=== PATIENT | female | born 2000 | race Two or more races ===

== ENCOUNTER 2022-06-10 18:31 | Emergency (ER) | payer OTHER, SELFPAY ==
[2022-06-10 18:48] VITALS: BP 125/73; PULSE 94; RESP 18; TEMP 36.9; O2SAT 98; BMI 22.7
--- NOTE | 2022-06-10 19:14 | ED_ITS ---
HPI - General Adult General Time Seen by Provider: 19:14 Date Seen: 06/10/22 Chief complaint: GI Bleed Stated complaint: Black Bloody stool post GI surgery Time Seen by Provider: 06/10/22 18:33 Source: patient Mode of arrival: ambulatory Limitations: no limitations History of Present Illness HPI narrative: Patient is a very pleasant 21-year-old female who is from [place] originally, attending school here in [place]. She has had a gastric sleeve placed 9 months ago successfully and she has lost about 100 lb. She feels very happy about this. She has had some intermittent back pain. And for the last couple of months she has been taking a medication called in from her doctor in [place] called E total lack, which the trade name here is Lodine. The patient reports over last month or so she has no some darkish black stool and she has had some intermittent epigastric pain. The patient has had no fevers chills, bowel or bladder incontinence. Her weight loss has been intentional. No chest pain or breathing problem. The patient was thinking maybe she felt a little lightheaded today but that seemed to get better Related Data Home Medications Medication Instructions Recorded Confirmed lamotrigine 25 mg tablet 25 mg PO 04/21/22 04/21/22 medroxyprogesterone 5 mg tablet 5 mg PO 04/21/22 04/21/22 methylphenidate HCl 10 mg tablet 10 mg PO QDAY 04/21/22 04/21/22 (Ritalin) methylphenidate HCl 36 mg 36 mg PO QDAY 04/21/22 04/21/22 tablet,extended release 24 hr (Concerta) pantoprazole 40 mg tablet,delayed mg PO 04/21/22 04/21/22 release Allergies Allergy/AdvReac Type Severity Reaction Status Date / Time sertraline Allergy Verified 06/10/22 18:47 Review of Systems Status of ROS: Reports: 6 or more systems reviewed and unremarkable except as noted in History and below [facility] Medical History Folliculitis Visit for suture removal Social History Smoking Status: Current every day smoker What tobacco products do you use: cigarettes Smoking packs per day: 0.25 Smoking cigarettes per day: 5.0 Do you use any of these nicotine containing products: Vaping Products Second hand tobacco smoke exposure: Yes How often do you have a drink containing alcohol: 2-4 times a month How many standard drinks containing alcohol do you have on a typical day: 1 or 2 How often do you have six or more drinks on one occasion: Never AUDIT-C Alcohol total score: 2 Non-prescribed substance use: denies use service: No Exam Narrative: Exam Narrative: Objective vital signs unremarkable in general patient is no apparent distress alert orient x3, conjunctiva do not appear pale Neck is supple Mild epigastric tenderness but no rebound or peritonitis no palpable masses in her abdomen Nurse present for evaluation patient has got a couple of skin tags around her anal area but no external hemorrhoids, no digital exam done Good peripheral perfusion noted Const: Vital Signs, click to edit/add: Vital Signs - 24 hr 06/10/22 18:48 Temperature 98.5 F Pulse Rate [Pulse Oximeter] 94 Respiratory Rate 18 Blood Pressure [Le ft Upper Arm] 125/73 Pulse Oximetry 98 Oxygen Delivery Me thod Room Air Course Vital Signs Vital signs: Initial Vital Signs Temperature 98.5 F 06/10/22 18:48 Temperature Source Temporal Artery Scan 06/10/22 18:48 Pulse Rate 94 06/10/22 18:48 Pulse Rhythm 06/10/22 18:48 Respiratory Rate 18 06/10/22 18:48 Blood Pressure 125/73 06/10/22 18:48 Blood Pressure Mean 90 06/10/22 18:48 Blood Pressure Position Supine 06/10/22 18:48 Pulse Oximetry 98 06/10/22 18:48 Oxygen Delivery Method 06/10/22 18:48 Vital Signs Temperature 98.5 F 06/10/22 18:48 Pulse Rate 94 06/10/22 18:48 Respiratory Rate 18 06/10/22 18:48 Blood Pressure 125/73 06/10/22 18:48 Pulse Oximetry 98 06/10/22 18:48 Oxygen Delivery Method 06/10/22 18:48 Temperature 98.5 F 06/10/22 18:48 Pulse Rate 94 06/10/22 18:48 Respiratory Rate 18 06/10/22 18:48 Blood Pressure 125/73 06/10/22 18:48 Pulse Oximetry 98 06/10/22 18:48 Oxygen Delivery Method 06/10/22 18:48 Medical Decision Making MDM Narrative Medical decision making narrative: Patient is a very pleasant 21 year white female who had a gastric sleeve about 9 months ago she has had successful weight loss. Unfortunately she has been taking an anti-inflammatory intermittently for the last couple of months, now has some blackish stools I suspect she has gastritis or a mild ulcer. Does not have clinically significant bleeding as her vital signs appear unremarkable common will check her hemoglobin at and electrolytes. If these are reassuring I think we can get her on Prilosec 20 mg daily for the next couple of weeks however. Have her stop the anti-inflammatory medication. Only take Tylenol as needed, and follow up with primary care in the next few days for reassessment. If she does not stopper has continued black stools she should get an endoscopy upper and likely lower but would start with upper. This can range her primary care doctor. Will make an appointment with telephone number and recommendations. Lab Data Labs: Lab Results 06/10/22 06/10/22 Range/Units 19:24 19:24 WBC 7.76 (4.50-11.00) K/uL RBC 4.45 (4.00-5.20) m/uL Hgb 13.7 (12.0-16.0) gm/dL Hct 41.5 (33.0-51.0) % MCV 93 (80-100) fL MCH 31 (26-34) pg MCHC 33 (32-36) gm/dL RDW Coeff of Rachel 12.7 (11.5-15.5) % Plt Count 210 (140-440) K/uL Neut % (Auto) 65.6 (42.0-72.0) % Lymph % (Auto) 29.1 (20-44) % Webb % (Auto) 3.9 (0.0-11.0) % Eos % (Auto) 1.2 (0.0-7.0) % Baso % (Auto) 0.1 (0.0-3.0) % Neut # (Auto) 5.09 (1.7-7.0) K/uL Lymph # (Auto) 2.26 (0.90-2.90) K/uL Webb # (Auto) 0.30 (0.00-0.90) K/UL Eos # (Auto) 0.09 (0.00-0.50) K/uL Baso # (Auto) 0.01 (0.00-0.30) K/uL Sodium 139 (135-149) mmol/L Potassium 3.6 (3.6-5.1) mmol/L Chloride 104 (96-114) mmol/L Carbon Dioxide 27 (20-32) mmol/L BUN 10 (5-24) mg/dL Creatinine 0.5 (0.5-1.5) mg/dL Estimated Creat Clear 154.98 Estimated GFR 138 ml/min Glucose 89 (60-115) mg/dL Calcium 9.5 (8.4-10.6) mg/dL Discharge Plan Discharge Clinical Impression: Gastritis, Chronic GI bleeding Patient Disposition: Home, Self-Care Condition: Stable Additional Instructions: Stop the Lodine. Do not use Advil Aleve or aspirin. May use Tylenol as needed for back pain only. Prilosec 20 mg daily for the next 2 weeks, this can be obtained [id number] at a pharmacy. Recheck your hemoglobin level and have a reassessment with primary care doctor in the next 2 days. Call clinic for an appointment at . You should have a repeat hemoglobin and read discussion about stool pattern and color. If you noticed bright red blood or other lightheadedness dizziness she should return promptly to the ED. Activity Level: Light activity Discharge Diet: Regular Prescriptions: No Action lamotrigine 25 mg tablet 25 mg PO Label Comments: TAKE ONE TABLET BY MOUTH ONE TIME DAILY pantoprazole 40 mg tablet,delayed release (DR/EC) PO Label Comments: Take 1 tab by mouth daily. methylphenidate HCl [Ritalin] 10 mg tablet 10 mg PO QDAY Label Comments: evening methylphenidate HCl [Concerta] 36 mg tablet extended release 24hr 36 mg PO QDAY Label Comments: in the morning medroxyprogesterone 5 mg tablet 5 mg PO Label Comments: TAKE ONE TABLET BY MOUTH TWICE DAILY every month 1 week prior to menses Follow Up/Referrals: Provider,Not a Local [Primary Care Provider] - Stand Alone Forms: [facility] Info Instructions
[2022-06-10] MEDS: OMEPRAZOLE 20 MG CAPSULE DR PO (19:20)
[2022-06-10 19:29] LABS: Basophils Absolute Auto 0.01 K/uL (0.00-0.30); Basophils Percent Auto 0.1 % (0.0-3.0); Eosinophils Absolute Auto 0.09 K/uL (0.00-0.50); Eosinophils Percent Auto 1.2 % (0.0-7.0); Hematocrit 41.5 % (33.0-51.0); Hemoglobin* 13.7 gm/dL (12.0-16.0); Immature Granulocytes Abs Auto 0.01 K/uL (0.00-0.30); Immature Granulocytes Pct Auto 0.1 %; Lymphocytes Absolute Auto 2.26 K/uL (0.90-2.90); Lymphocytes Percent Auto 29.1 % (20-44); Mean Corpuscular HGB Conc 33 gm/dL (32-36); Mean Corpuscular Hemoglobin 31 pg (26-34); Mean Corpuscular Volume 93 fL (80-100); Monocytes Percent Auto 3.9 % (0.0-11.0); Neutrophils Absolute Auto 5.09 K/uL (1.7-7.0); Neutrophils Percent Auto 65.6 % (42.0-72.0); Platelet Count* 210 K/uL (140-440); RDW Coefficient of Variation % 12.7 % (11.5-15.5); Red Blood Count 4.45 m/uL (4.00-5.20); White Blood Count* 7.76 K/uL (4.50-11.00)
[2022-06-10 19:51] LABS: Slide Review Reflex No
[2022-06-10 19:53] LABS: Chloride* 104 mmol/L (96-114)
[2022-06-10 19:54] LABS: Potassium* 3.6 mmol/L (3.6-5.1); Sodium* 139 mmol/L (135-149)
[2022-06-10 19:56] LABS: Carbon Dioxide* 27 mmol/L (20-32); Creatinine* 0.5 mg/dL (0.5-1.5); Est. Creatinine Clearance* 154.98; Estimated Glomerular Filt Rate 138 ml/min
[2022-06-10 19:57] LABS: Blood Urea Nitrogen* 10 mg/dL (5-24); Calcium* 9.5 mg/dL (8.4-10.6); Glucose* 89 mg/dL (60-115)
== END 2022-06-10 20:10 | disposition home or self-care (01) ==
PROVIDERS: Emergency Provider Family Medicine
DX: K29.70 Gastritis, unspecified, without bleeding (principal); K92.2 Gastrointestinal hemorrhage, unspecified
CPT/HCPCS: 36415; 80048; 85025; 99283; 99284; A9270

== ENCOUNTER 2022-06-12 14:08 | Emergency (ER) | payer OTHER, SELFPAY ==
[2022-06-12 14:11] VITALS: BP 115/83; PULSE 113; RESP 18; TEMP 36.4; O2SAT 97; BMI 21.5
== END 2022-06-12 14:44 | disposition left against medical advice (07) ==
DX: Z53.21 Procedure and treatment not carried out due to patient leaving prior to being seen by health care provider (principal)

== ENCOUNTER 2022-06-12 14:33 | Outpatient (CLI) | payer OTHER, SELFPAY | END 2022-06-12 14:34 | disposition home or self-care (01) | PROVIDERS: Internal Medicine; Visit Provider Emergency Medicine | DX: K92.1 Melena (principal); K29.70 Gastritis, unspecified, without bleeding; K92.2 Gastrointestinal hemorrhage, unspecified; L73.9 Follicular disorder, unspecified | CPT/HCPCS: 36415; 85018 ==

== ENCOUNTER 2022-08-09 09:20 | Outpatient (RCR) | payer OTHER, SELFPAY | END 2022-09-18 09:34 | disposition home or self-care (01) | PROVIDERS: PCP Internal Medicine; Visit Provider Family Medicine | DX: M54.50 Low back pain, unspecified (principal); M62.81 Muscle weakness (generalized); R29.3 Abnormal posture; Z51.89 Encounter for other specified aftercare | CPT/HCPCS: 97110; 97161 ==

== ENCOUNTER 2022-12-14 21:21 | Emergency (ER) | payer OTHER, SELFPAY ==
[2022-12-14 21:49] VITALS: BP 135/85; PULSE 64; RESP 16; TEMP 36.6; O2SAT 98
--- NOTE | 2022-12-14 21:49 | ED.BACK ---
HPI - Back Pain/Injury General Time Seen by Provider: 21:49 Date Seen: 12/14/22 Chief Complaint: Back Injury/Pain Stated Complaint: Back pain Time Seen by Provider: 12/14/22 21:49 Source: patient, RN notes reviewed and old records reviewed Mode of arrival: ambulatory Limitations: no limitations History of Present Illness HPI Narrative: Patient is a 21-year-old college student in [place] who is 3 weeks status post abdominal plasty and breast surgery after weight loss post sleeve placement who comes to the emergency room with complaints of mid back pain. Patient notes that she had back pain from the bed at [place] last year but this seems much more severe. It started approximately 1 hour ago and has been significant. She notes that usually she tries to sleep with a pillow but last night did not. The pain does not radiate into her legs. She notes that it starts that her spine and wraps around. She is not nauseated nor has she had any vomiting or diarrhea. She has had some mild constipation but was able to have a normal bowel movement earlier today. She notes that she feels best when she is lying flat but slightly elevated. She cannot recall any injury. She is breathing without difficulty. She has been wearing support brought and support for her abdomen. No fevers or chills and she has not noticed any drainage from her surgical wounds. Denies dysuria and any chance of . Related Data Home Medications Medication Instructions Recorded Confirmed methylphenidate HCl 10 mg tablet 10 mg PO QDAY 04/21/22 07/27/22 (Ritalin) methylphenidate HCl 36 mg 36 mg PO QDAY 04/21/22 07/27/22 tablet,extended release 24 hr (Concerta) pantoprazole 40 mg tablet,delayed mg PO 04/21/22 07/27/22 release clonazepam 0.5 mg tablet 0.5 mg PO QHS 06/13/22 07/27/22 Allergies Allergy/AdvReac Type Severity Reaction Status Date / Time sertraline Allergy Verified 07/27/22 10:54 Review of Systems Status of ROS: Reports: 6 or more systems reviewed and unremarkable except as noted in History and below Narrative: Originally from [place]. [place]. Const: Reports: change in weight (Significant weight loss post sleeve placement.); Denies: fever or chills Eyes: Denies: change in vision ENMT: Denies: neck pain, throat swelling or difficulty swallowing Cardio: Denies: chest pain, palpitations, swelling of feet/ankles, lightheadedness or shortness of breath with exertion Resp: Denies: shortness of breath or cough GI: Denies: abdominal pain, nausea, vomiting, diarrhea or difficulty swallowing : Denies: painful urination or urinary frequency Musculo: Reports: back pain (Mid back at approximately T11-T12); Denies: neck pain Integ/Breast: Reports: skin tenderness; Denies: redness, skin swelling or sores Allergy/Immuno: Denies: throat swelling PFSH [facility] Medical History Melena ?K92.1 - Melena (ICD-10) Folliculitis ?L73.9 - Follicular disorder, unspecified (ICD-10) Visit for suture removal ?Z48.02 - Encounter for removal of sutures (ICD-10) Surgical History S/P correction of deviated nasal septum ?Z98.890 - Other specified postprocedural states (ICD-10) H/O removal of cyst (04/2022) ?Z98.890 - Other specified postprocedural states (ICD-10) H/O gastric sleeve (2021) ?Z90.3 - Acquired absence of stomach [part of] (ICD-10) Social History Narrative: from [place]-goes to [facility] Smoking Status: Current every day smoker What tobacco products do you use: cigarettes Smoking packs per day: 0.5 Smoking cigarettes per day: 10.0 Do you use any of these nicotine containing products: Vaping Products Second hand tobacco smoke exposure: Yes How often do you have a drink containing alcohol: 2-4 times a month How many standard drinks containing alcohol do you have on a typical day: 1 or 2 How often do you have six or more drinks on one occasion: Never AUDIT-C Alcohol total score: 2 Non-prescribed substance use: denies use service: No Exam Narrative: Exam Narrative: Patient is seen initially in the hallway. She is a crying. When we do talk she is able to a described discomfort and it does appear to be somewhat improved. Eyes are clear. Face symmetrical. Heart with a regular rate and rhythm. Lungs are clear in all lung gonzalez. Abdomen is soft. Patient has multiple surgical wounds that are healing on her breasts and on her extreme lower abdomen. There are no areas of drainage or significant erythema. Examination of the back shows no of acute tenderness. I do ascertain the area of discomfort is approximately T11-T10 and T12 and seems to be more on the left. No crepitus or unusual findings. Lower extremities moving all extremities. Significant other hears very loving and supportive. Const: Vital Signs, click to edit/add: Vital Signs - 24 hr 12/14/22 21:49 12/14/22 22:22 12/14/22 22:30 Temperature 97.9 F Pulse Rate 63 71 Pulse Rate [Left P ulse Oximeter] 64 Respiratory Rate 16 Blood Pressure [Ri ght Upper Arm] 135/85 Pulse Oximetry 98 98 96 Oxygen Delivery Me thod Room Air 12/14/22 22:33 Temperature Pulse Rate 76 Pulse Rate [Left P ulse Oximeter] Respiratory Rate Blood Pressure [Ri ght Upper Arm] Pulse Oximetry 94 Oxygen Delivery Me thod Documenting provider has reviewed patient's vital signs: yes Course Course ED Course: Patient's pain appears to be out of proportion to her exam. Patient notes the onset of this approximately 1 hour ago. Does not really appear to be spasm like in nature. She has not had fever chills or vomiting. We will place an IV at this time and give her morphine 4 mg and Zofran 4 mg. Will also check labs. Of labs reassuring will obtain x-ray of the thoracic spine. If they are concerning I did discuss with patient possibility of doing CT. Reevaluation(s) Reevaluation #1: Patient noted to be doing much better. She is seen walking. She and significant other are laughing. He is very loving and attentive to her. Vital Signs Vital signs: Initial Vital Signs Temperature 97.9 F 12/14/22 21:49 Temperature Source Temporal Artery Scan 12/14/22 21:49 Pulse Rate 64 12/14/22 21:49 Respiratory Rate 16 12/14/22 21:49 Blood Pressure 135/85 12/14/22 21:49 Blood Pressure Mean 101 12/14/22 21:49 Blood Pressure Position Sitting 12/14/22 21:49 Pulse Oximetry 98 12/14/22 21:49 Oxygen Delivery Method Room Air 12/14/22 21:49 Vital Signs Temperature 97.9 F 12/14/22 21:49 Pulse Rate 64 12/14/22 21:49 Respiratory Rate 16 12/14/22 21:49 Blood Pressure 135/85 12/14/22 21:49 Pulse Oximetry 98 12/14/22 21:49 Oxygen Delivery Method Room Air 12/14/22 21:49 Temperature 97.9 F 12/14/22 21:49 Pulse Rate 76 12/14/22 22:33 Respiratory Rate 16 12/14/22 21:49 Blood Pressure 135/85 12/14/22 21:49 Pulse Oximetry 94 12/14/22 22:33 Oxygen Delivery Method Room Air 12/14/22 21:49 MDM - Back Pain/Injury MDM Narrative Medical decision making narrative: 1. Back pain-patient had the onset of severe back pain a few hours prior to coming into the emergency room. However upon further discussion she actually notes that she has experience this type of back pain before but probably not as severe. She has undergone CTs and injections in the past that have not really helped. She has also done physical therapy that has not helped. Medication tonight did appear to make her feel much better. We are going to try some Flexeril 10 mg p.o. b.i.d. p.r.n.. I did suggest starting off with actually a half a tablet or 5 mg to avoid the hangover affect. Patient is fairly certain that this this is associated with a poor mattress as this happened to her last year and now her roommate is also complaining. She states that she has to be very careful about her positioning on the mattress. At this time there is no evidence to suggest pyelonephritis, urinary tract infection, kidney stone, compression fracture. Labs are reassuring at this time. Although white count is slightly elevated CRP is within normal limits. 2. Disposition-home at this time. Return as needed for worsening symptoms. Again, conversation is noted to have taken place later and patient is assuring me that this is the pain that she has felt frequently over the past year. Medical Records Attestation: I reviewed the patient's medical records. Lab Data Attestation: I reviewed the patient's lab results. Labs: Lab Results 12/14/22 12/14/22 Range/Units 22:14 23:00 WBC 11.89 H (4.50-11.00) K/uL RBC 4.33 (4.00-5.20) m/uL Hgb 12.9 (12.0-16.0) gm/dL Hct 38.8 (33.0-51.0) % MCV 90 (80-100) fL MCH 30 (26-34) pg MCHC 33 (32-36) gm/dL RDW Coeff of Rachel 13.1 (11.5-15.5) % Plt Count 220 (140-440) K/uL Neut % (Auto) 67.7 (42.0-72.0) % Lymph % (Auto) 23.5 (20-44) % Milam % (Auto) 6.6 (0.0-11.0) % Eos % (Auto) 1.9 (0.0-7.0) % Baso % (Auto) 0.1 (0.0-3.0) % Neut # (Auto) 8.00 H (1.7-7.0) K/uL Lymph # (Auto) 2.80 (0.90-2.90) K/uL Milam # (Auto) 0.80 (0.00-0.90) K/UL Eos # (Auto) 0.20 (0.00-0.50) K/uL Baso # (Auto) 0.00 (0.00-0.30) K/uL Abs Immat Gran (auto) 0.00 (0.00-0.30) K/uL Imm/Tot Granulo (auto) 0.2 % Sodium 137 (135-149) mmol/L Potassium 3.6 (3.6-5.1) mmol/L Chloride 103 (96-114) mmol/L Carbon Dioxide 24 (20-32) mmol/L Anion Gap 10 (7-15) mEq/L BUN 12 (5-24) mg/dL Creatinine 0.5 (0.5-1.5) mg/dL Estimated Creat Clear 154.22 Estimated GFR 138 ml/min Glucose 83 (60-115) mg/dL Calcium 9.9 (8.4-10.6) mg/dL Total Bilirubin 0.8 (0.1-1.5) mg/dL AST 62 H (12-35) U/L ALT 25 (4-35) U/L Alkaline Phosphatase 43 (40-150) U/L C-Reactive Protein < 0.5 L (0.5-1.0) mg/dL Total Protein 7.4 (6.0-8.3) g/dL Albumin 4.5 (3.3-5.0) g/dL Urine Color Yellow (Yellow) Urine Appearance Clear (Clear) Urine pH 7.0 (5.0-8.5) Ur Specific [place] 1.015 (1.000-1.030) Urine Protein Negative (Negative) Urine Glucose (UA) Negative (Negative) Urine Ketones 2+ A (Negative) Urine Blood Negative (Negative) Urine Nitrite Negative (Negative) Urine Bilirubin Negative (Negative) Urine Urobilinogen 0.2 (0.2-1.0) Ur Leukocyte Esterase Negative (Negative) Urine RBC 0-2 (0-2) Urine WBC 0-2 (0-5) Ur Squamous Epith Cells Few (None-Few) Urine Bacteria None (None) Imaging Data Thoracic spine x-ray: Attestation: I have reviewed the pertinent imaging results. Discharge Plan Discharge Clinical Impression: Back pain Qualifiers: Back pain location: thoracic back pain Chronicity: chronic Back pain laterality: midline Qualified Code(s): M54.6 - Pain in thoracic spine Patient Disposition: Home, Self-Care Condition: Improved Additional Instructions: Tylenol as needed for discomfort. You may try Flexeril which is a muscle relaxant as needed for discomfort. Ice to area of discomfort as well. Please return to the emergency room for further evaluation for increasing pain, vomiting, fever, onset of new symptoms. Push fluids stay well hydrated. Prescriptions: No Action pantoprazole 40 mg tablet,delayed release (DR/EC) PO Patient Comments: Take 1 tab by mouth daily. methylphenidate HCl [Ritalin] 10 mg tablet 10 mg PO QDAY Patient Comments: evening methylphenidate HCl [Concerta] 36 mg tablet extended release 24hr 36 mg PO QDAY Patient Comments: in the morning clonazepam 0.5 mg tablet 0.5 mg PO QHS Rx Instructions: administer 30 minutes before bedtime Follow Up/Referrals: Sean Brandt MD [Primary Care Provider] - Stand Alone Forms: [facility] Info Instructions
[2022-12-14] MEDS: MORPHINE 4 MG/ML INJ IVP (22:14)
[2022-12-14] MEDS: ONDANSETRON 2 MG/ML inj 4 MG IVP (22:14)
[2022-12-14 22:19] LABS: Basophils Percent Auto 0.1 % (0.0-3.0); Eosinophils Percent Auto 1.9 % (0.0-7.0); Hematocrit 38.8 % (33.0-51.0); Hemoglobin* 12.9 gm/dL (12.0-16.0); Immature Granulocytes Pct Auto 0.2 %; Lymphocytes Percent Auto 23.5 % (20-44); Mean Corpuscular HGB Conc 33 gm/dL (32-36); Mean Corpuscular Hemoglobin 30 pg (26-34); Mean Corpuscular Volume 90 fL (80-100); Monocytes Percent Auto 6.6 % (0.0-11.0); Neutrophils Percent Auto 67.7 % (42.0-72.0); Platelet Count* 220 K/uL (140-440); RDW Coefficient of Variation % 13.1 % (11.5-15.5); Red Blood Count 4.33 m/uL (4.00-5.20); White Blood Count* 11.89 K/uL (4.50-11.00)
[2022-12-14 22:22] VITALS: PULSE 63; O2SAT 98
[2022-12-14 22:25] LABS: Slide Review Reflex No
--- NOTE | 2022-12-14 22:28 | CRLHL7_ITS ---
For Patients: As a result of the Cures Act, medical imaging exams and procedure reports are released immediately into your electronic medical record. You may view this report before your referring provider. If you have questions, please contact your health care provider. INDICATION: T9-12 area discomfort. TECHNIQUE: 3 views of the thoracic spine. Permanently recorded images are archived. COMPARISON: None. FINDINGS: The thoracic vertebral bodies or normal in height and alignment. No significant degenerative changes of the disc spaces. No aggressive osseous lesion. No acute fracture. Chain suture and surgical clips in the left upper quadrant. IMPRESSION: No acute bony abnormality or significant degenerative changes within the thoracic spine. Dictated by Shahriar Lewis MD @ 12/15/2022 12:14:01 AM (Electronically Signed)
[2022-12-14 22:30] VITALS: PULSE 71; O2SAT 96; O2SAT 98
[2022-12-14 22:32] LABS: Albumin* 4.5 g/dL (3.3-5.0); Chloride* 103 mmol/L (96-114); Sodium* 137 mmol/L (135-149)
[2022-12-14 22:33] VITALS: PULSE 76; O2SAT 94
[2022-12-14 22:33] LABS: Potassium* 3.6 mmol/L (3.6-5.1)
[2022-12-14 22:35] LABS: Alanine Aminotransferase* 25 U/L (4-35); Alkaline Phosphatase* 43 U/L (40-150); Anion Gap 10 mEq/L (7-15); Aspartate Amino Transferase* 62 U/L (12-35); Bilirubin Total* 0.8 mg/dL (0.1-1.5); Blood Urea Nitrogen* 12 mg/dL (5-24); Carbon Dioxide* 24 mmol/L (20-32); Creatinine* 0.5 mg/dL (0.5-1.5); Est. Creatinine Clearance* 154.22; Estimated Glomerular Filt Rate 138 ml/min; Total Protein* 7.4 g/dL (6.0-8.3)
[2022-12-14 22:36] LABS: Calcium* 9.9 mg/dL (8.4-10.6); Glucose* 83 mg/dL (60-115)
[2022-12-14 22:39] LABS: C Reactive Protein* < 0.5 mg/dL (0.5-1.0)
[2022-12-14 23:22] LABS: Appearance Urine Clear (Clear); Bilirubin Urine Negative (Negative); Blood Urine Negative (Negative); Color Urine Yellow (Yellow); Glucose Urine Negative (Negative); Ketones Urine 2+ (Negative); Leukocyte Esterase Urine Negative (Negative); Nitrite Urine Negative (Negative); Protein Urine Negative (Negative); Specific Gravity Urine 1.015 (1.000-1.030); Urobilinogen Urine 0.2 (0.2-1.0)
[2022-12-14 23:48] LABS: RBC Urine 0-2 (0-2); Squamous Epithelial Cell Urine Few (None-Few); WBC Urine 0-2 (0-5)
[2022-12-15 00:10] VITALS: BP 115/74; PULSE 70; RESP 16; TEMP 36.8; O2SAT 94
== END 2022-12-15 00:14 | disposition home or self-care (01) ==
PROVIDERS: Emergency Provider Family Medicine; PCP Internal Medicine
DX: M54.6 Pain in thoracic spine (principal)
CPT/HCPCS: 36415; 72070; 80053; 81001; 85025; 86140; 94761; 96374; 96375; 99284; J2270; J2405

== ENCOUNTER 2023-01-25 11:25 | Outpatient (CLI) | payer OTHER, SELFPAY | END 2023-01-25 11:26 | disposition home or self-care (01) | PROVIDERS: Visit Provider Physician Assistant | DX: L65.9 Nonscarring hair loss, unspecified (principal); N92.6 Irregular menstruation, unspecified; L68.0 Hirsutism | CPT/HCPCS: 82627; 83498; 84146; 84270; 84402; 84403; 84443 ==

== ENCOUNTER 2023-02-27 13:07 | Emergency (ER) | payer OTHER, SELFPAY ==
[2023-02-27 13:17] VITALS: BP 119/80; PULSE 86; RESP 18; TEMP 36.2; O2SAT 97; BMI 21.3
[2023-02-27] MEDS: KETOROLAC 30 MG/ML inj 60 MG IM (14:57)
--- NOTE | 2023-02-27 15:19 | ED_ITS ---
HPI - General Adult General Chief complaint: Back Injury/Pain Stated complaint: Back pain Time Seen by Provider: 02/27/23 14:07 Source: patient Mode of arrival: ambulatory Limitations: no limitations History of Present Illness HPI narrative: 22-year-old female coming in today complaining of back pain. Patient's back pain has been present for approximately 2 years. She states that every now and then she gets terrible exacerbations and she can not function because the pain is so bad. She says it is hard to breathe. The pain started last night and so bad that she vomited once. She denies any fevers or chills. Nothing new about this episode. It appears that the patient was in the ER about 2 months ago for similar symptoms. Imaging was done with x-ray at that time as well as blood work which was all unremarkable. She was also seen July of this year in the back pain clinic and physical therapy was recommended. She states that she has not complied with those orders. No loss of bowel or bladder function. Pain does not radiate down her legs. Pain is located across the entire mid back. Related Data Home Medications Medication Instructions Recorded Confirmed methylphenidate HCl 10 mg tablet 10 mg PO QDAY 04/21/22 02/27/23 (Ritalin) omeprazole 10 mg capsule,delayed 10 mg PO ONCE 01/25/23 02/27/23 release Previous Rx's Medication Instructions Recorded drospirenone 3 mg-ethinyl 1 tab PO QDAY #84 tabs 01/25/23 estradiol 0.02 mg tablet (RICHARD (28)) spironolactone 50 mg tablet 50 mg PO BID #60 tabs 02/09/23 ketorolac 10 mg tablet 10 mg PO TID 5 days #15 tabs 02/27/23 ondansetron HCl 4 mg tablet 4 mg PO TID PRN nausea and 02/27/23 vomiting #10 tabs Allergies Allergy/AdvReac Type Severity Reaction Status Date / Time sertraline Allergy Verified 02/08/23 16:31 Review of Systems Status of ROS: Reports: 10 or more systems reviewed and unremarkable except as noted in History and below [facility] Medical History Borderline personality disorder ?F60.3 - Borderline personality disorder (ICD-10) Anxiety ?F41.9 - Anxiety disorder, unspecified (ICD-10) Depression ?F32.A - Depression, unspecified (ICD-10) Melena ?K92.1 - Melena (ICD-10) Folliculitis ?L73.9 - Follicular disorder, unspecified (ICD-10) Surgical History History of abdominoplasty ?Z98.890 - Other specified postprocedural states (ICD-10) History of mastopexy ?Z98.890 - Other specified postprocedural states (ICD-10) S/P correction of deviated nasal septum ?Z98.890 - Other specified postprocedural states (ICD-10) H/O removal of cyst (04/2022) ?Z98.890 - Other specified postprocedural states (ICD-10) H/O gastric sleeve (2021) ?Z90.3 - Acquired absence of stomach [part of] (ICD-10) Family History Aunt Heart disease Thyroid disease Grandmother Osteoporosis Other Rheumatoid arthritis Social History Narrative: from [place]-goes to [facility] and the [facility] Smoking Status: Current every day smoker What tobacco products do you use: cigarettes Smoking packs per day: 0.5 Smoking cigarettes per day: 10.0 Do you use any of these nicotine containing products: Vaping Products Second hand tobacco smoke exposure: Yes How often do you have a drink containing alcohol: 2-4 times a month How many standard drinks containing alcohol do you have on a typical day: 1 or 2 How often do you have six or more drinks on one occasion: Never AUDIT-C Alcohol total score: 2 Non-prescribed substance use: denies use service: No Exam Narrative: Exam Narrative: Well-nourished well-developed patient in no acute distress. Alert and oriented. Answers questions appropriately. Mood and affect are appropriate. Thoughts are goal oriented and rational. No tangential or magical thinking noted. Patient speaks in full sentences without needing to catch her breath. HEENT: Normocephalic atraumatic. Pupils are equally round reactive to light. Extraocular muscles are intact. Conjunctivae are moist without any icterus noted. Moist mucous membranes. Cardiovascular: Heart is regular rate and rhythm S1 and S2 are present without any murmurs. Lungs: Clear to auscultation bilaterally no wheezes rhonchi or rales are appreciated. Patient takes deep breaths without any discomfort. Abdomen: Soft and nontender nondistended with normal bowel sounds. No guarding or rebound. No masses or organomegaly appreciated. Extremities: Bilateral lower extremities are without edema. Normal DP and PT pulses. Skin: Well perfused without any obvious rashes. Back: Normal appearance. No tenderness to palpation over the cervical thoracic or lumbar spine. No skin changes. No significant tenderness over the palpation of the paraspinal musculature. Patient can get up and down from the bed without difficulty. Gait is normal. Const: Vital Signs, click to edit/add: Vital Signs - 24 hr 02/27/23 13:17 Temperature 97.2 F L Pulse Rate [Right Pulse Oximeter] 86 Respiratory Rate 18 Blood Pressure [Ri ght Upper Arm] 119/80 Pulse Oximetry 97 Oxygen Delivery Me thod Room Air Course Course ED Course: Had a long discussion with the patient today about not repeating imaging that was recently done. Given that her pain is not new, has been present for over 2 years, and she has no concerning symptoms today I do not feel the need to do any further imaging or lab work. Patient did receive IM Toradol while she was here which did help some. She is requesting pain medications and nausea medication to take at home. Vital Signs Vital signs: Initial Vital Signs Temperature 97.2 F L 02/27/23 13:17 Temperature Source Temporal Artery Scan 02/27/23 13:17 Pulse Rate 86 02/27/23 13:17 Respiratory Rate 18 02/27/23 13:17 Blood Pressure 119/80 02/27/23 13:17 Blood Pressure Mean 93 02/27/23 13:17 Blood Pressure Position Sitting 02/27/23 13:17 Pulse Oximetry 97 02/27/23 13:17 Oxygen Delivery Method Room Air 02/27/23 13:17 Vital Signs Temperature 97.2 F L 02/27/23 13:17 Pulse Rate 86 02/27/23 13:17 Respiratory Rate 18 02/27/23 13:17 Blood Pressure 119/80 02/27/23 13:17 Pulse Oximetry 97 02/27/23 13:17 Oxygen Delivery Method Room Air 02/27/23 13:17 Temperature 97.2 F L 02/27/23 13:17 Pulse Rate 86 02/27/23 13:17 Respiratory Rate 18 02/27/23 13:17 Blood Pressure 119/80 02/27/23 13:17 Pulse Oximetry 97 02/27/23 13:17 Oxygen Delivery Method Room Air 02/27/23 13:17 Medications Administered Medications: Discontinued Medications Generic Name Dose Route Start Last Admin Trade Name Freq PRN Reason Stop Dose Admin Ketorolac Tromethamine 60 mg 02/27/23 14:22 02/27/23 14:57 Ketorolac 30 Mg/Ml Inj IM 02/27/23 14:23 60 mg ONCE ONE Administration Medical Decision Making MDM Narrative Medical decision making narrative: 22-year-old female with chronic back pain. Patient will be sent home with Cathie and Mohini. We will get her an appointment with the back pain clinic on ce again for a follow-up. Patient did not have any other questions or concerns at this time. Medical Records Medical records reviewed: Yes I reviewed the patient's medical records Discharge Plan Discharge Clinical Impression: Back pain Patient Disposition: Home, Self-Care Condition: Stable Additional Instructions: Follow up appointment is scheduled at the [facility] on 03/08 with a 10:10am appointment time. Please arrive at 10am to check in. If you have any questions or need to reschedule, please call [phone]. [facility] [address] [place] [id number] Prescriptions: New ondansetron HCl 4 mg tablet 4 mg PO TID PRN (Reason: nausea and vomiting) Qty: 10 0RF ketorolac 10 mg tablet 10 mg PO TID 5 Days Qty: 15 0RF No Action methylphenidate HCl [Ritalin] 10 mg tablet 10 mg PO QDAY Patient Comments: evening omeprazole 10 mg capsule,delayed release(DR/EC) 10 mg PO ONCE drospirenone-ethinyl estradiol [RICHARD (28)] 3-0.02 mg tablet 1 tab PO QDAY Qty: 84 3RF spironolactone 50 mg tablet 50 mg PO BID Qty: 60 2RF Follow Up/Referrals: Provider,Not a Local [Primary Care Provider] - Stand Alone Forms: [employer] Info Instructions
[2023-02-27 15:34] VITALS: BP 115/66; PULSE 56; RESP 20; O2SAT 98
== END 2023-02-27 15:35 | disposition home or self-care (01) ==
PROVIDERS: Emergency Provider Family Medicine
DX: M54.9 Dorsalgia, unspecified (principal)
CPT/HCPCS: 99283; 99284; J1885

== ENCOUNTER 2023-06-10 15:14 | Emergency (ER) | payer OTHER, SELFPAY ==
[2023-06-10 15:24] VITALS: BP 129/74; PULSE 77; RESP 18; TEMP 36.7; O2SAT 99; BMI 21.0
--- NOTE | 2023-06-10 16:23 | ED.GENADULT ---
HPI - General Adult General Chief complaint: Vaginal Bleeding Stated complaint: Irregular bleeding Time Seen by Provider: 06/10/23 15:26 Source: patient Mode of arrival: ambulatory Limitations: no limitations History of Present Illness HPI narrative: 22-year-old female sent over from the Urgent Care secondary to vaginal bleeding. Patient states that her period this month was longer than usual, lasting 8 days. Then she did not have bleeding for 2 weeks and 3 days ago she started passing small clots. She is not having regular spotting. She has some cramping when she classes clots. She denies fevers or chills. No nausea or vomiting. She is sexually active. She is on control. She [place] me [place] and so she just switched back to her usual control 1 month ago. She denies missing any pills. She does have a history of PCOS in here citizen. She does have a history of irregular periods. She is not dizzy or lightheaded. No shortness of breath or chest pain. Related Data Home Medications Medication Instructions Recorded Confirmed methylphenidate HCl 10 mg tablet 10 mg PO QDAY 04/21/22 02/27/23 (Ritalin) omeprazole 10 mg capsule,delayed 10 mg PO ONCE 01/25/23 02/27/23 release bupropion HCl 100 mg tablet 100 mg PO BID 06/10/23 06/10/23 lamotrigine 25 mg tablet mg PO 06/10/23 methylphenidate HCl 36 mg 36 mg PO DAILY 06/10/23 06/10/23 tablet,extended release 24 hr (Concerta) pantoprazole 40 mg tablet,delayed 40 mg PO DAILY 06/10/23 06/10/23 release trazodone 50 mg tablet 25 - 50 mg PO QPM PRN insomnia 06/10/23 06/10/23 Previous Rx's Medication Instructions Recorded drospirenone 3 mg-ethinyl 1 tab PO QDAY #84 tabs 01/25/23 estradiol 0.02 mg tablet (RICHARD (28)) ondansetron HCl 4 mg tablet 4 mg PO TID PRN nausea and 02/27/23 vomiting #10 tabs spironolactone 50 mg tablet 50 mg PO BID #60 tabs 06/05/23 Allergies Allergy/AdvReac Type Severity Reaction Status Date / Time sertraline Allergy Verified 06/10/23 15:32 Review of Systems Status of ROS: Reports: 10 or more systems reviewed and unremarkable except as noted in History and below PFSH PFS Medical History Borderline personality disorder ?F60.3 - Borderline personality disorder (ICD-10) Anxiety ?F41.9 - Anxiety disorder, unspecified (ICD-10) Depression ?F32.A - Depression, unspecified (ICD-10) Melena ?K92.1 - Melena (ICD-10) Folliculitis ?L73.9 - Follicular disorder, unspecified (ICD-10) Surgical History History of abdominoplasty ?Z98.890 - Other specified postprocedural states (ICD-10) History of mastopexy ?Z98.890 - Other specified postprocedural states (ICD-10) S/P correction of deviated nasal septum ?Z98.890 - Other specified postprocedural states (ICD-10) H/O removal of cyst (04/2022) ?Z98.890 - Other specified postprocedural states (ICD-10) H/O gastric sleeve (2021) ?Z90.3 - Acquired absence of stomach [part of] (ICD-10) Family History Aunt Heart disease Thyroid disease Grandmother Osteoporosis Other Rheumatoid arthritis Social History Narrative: from [place]-goes to [place] Smoking Status: Current every day smoker What tobacco products do you use: cigarettes Smoking packs per day: 0.5 Smoking cigarettes per day: 10.0 Do you use any of these nicotine containing products: Vaping Products Second hand tobacco smoke exposure: Yes How often do you have a drink containing alcohol: 2-4 times a month How many standard drinks containing alcohol do you have on a typical day: 1 or 2 How often do you have six or more drinks on one occasion: Never AUDIT-C Alcohol total score: 2 Non-prescribed substance use: denies use service: No Exam Narrative: Exam Narrative: Well-nourished well-developed patient in no acute distress, slightly anxious. Alert and oriented. Answers questions appropriately. Mood and affect are appropriate. Thoughts are goal oriented and rational. No tangential or magical thinking noted. Patient speaks in full sentences without needing to catch her breath. HEENT: Normocephalic atraumatic. Pupils are equally round reactive to light. Extraocular muscles are intact. Conjunctivae are moist without any icterus noted. Moist mucous membranes. Cardiovascular: Heart is regular rate and rhythm S1 and S2 are present without any murmurs. Lungs: Clear to auscultation bilaterally no wheezes rhonchi or rales are appreciated. Patient takes deep breaths without any discomfort. Abdomen: Soft and nontender nondistended with normal bowel sounds. No guarding or rebound. No masses or organomegaly appreciated. Extremities: Bilateral lower extremities are without edema. Skin: Well perfused without any obvious rashes. Const: Vital Signs, click to edit/add: Vital Signs - 24 hr 06/10/23 15:24 Temperature 98.1 F Pulse Rate [Right Pulse Oximeter] 77 Respiratory Rate 18 Blood Pressure [Ri ght Upper Arm] 129/74 Pulse Oximetry 99 Oxygen Delivery Me thod Room Air Course Course ED Course: test is negative. Hemoglobin normal. Vital Signs Vital signs: Initial Vital Signs Temperature 98.1 F 06/10/23 15:24 Temperature Source Temporal Artery Scan 06/10/23 15:24 Pulse Rate 77 06/10/23 15:24 Pulse Rhythm Regular 06/10/23 15:24 Respiratory Rate 18 06/10/23 15:24 Blood Pressure 129/74 06/10/23 15:24 Blood Pressure Mean 92 06/10/23 15:24 Blood Pressure Position Sitting 06/10/23 15:24 Pulse Oximetry 99 06/10/23 15:24 Oxygen Delivery Method Room Air 06/10/23 15:24 Vital Signs Temperature 98.1 F 06/10/23 15:24 Pulse Rate 77 06/10/23 15:24 Respiratory Rate 18 06/10/23 15:24 Blood Pressure 129/74 06/10/23 15:24 Pulse Oximetry 99 06/10/23 15:24 Oxygen Delivery Method Room Air 06/10/23 15:24 Temperature 98.1 F 06/10/23 15:24 Pulse Rate 77 06/10/23 15:24 Respiratory Rate 18 06/10/23 15:24 Blood Pressure 129/74 03/10/24 15:24 Pulse Oximetry 99 06/10/23 15:24 Oxygen Delivery Method Room Air 06/10/23 15:24 Medical Decision Making MDM Narrative Medical decision making narrative: Irregular menses with clotting. Given that she is not having very heavy bleeding, we discussed giving this another month to see if her cycle become more regular since she just switched back to a different control. If she is not seeing any improvement or the bleeding is getting heavier, recommend she follow-up with OBGYN. Lab Data Labs: Lab Results 06/10/23 06/10/23 Range/Units 16:15 16:24 Hgb 14.5 (12.0-16.0) gm/dL Urine HCG, Qual Negative (Negative) Discharge Plan Discharge Clinical Impression: Irregular periods Patient Disposition: Home, Self-Care Condition: Stable Additional Instructions: It may be that you need another month or 2 to get your period back to being regular after switching control. If bleeding becomes heavier I recommend you follow-up with your OBGYN. If you are soaking 1-2 pads per hour, return to the ER. Prescriptions: No Action methylphenidate HCl [Ritalin] 10 mg tablet 10 mg PO QDAY Patient Comments: evening omeprazole 10 mg capsule,delayed release(DR/EC) 10 mg PO ONCE drospirenone-ethinyl estradiol [RICHARD (28)] 3-0.02 mg tablet 1 tab PO QDAY Qty: 84 3RF ondansetron HCl 4 mg tablet 4 mg PO TID PRN (Reason: nausea and vomiting) Qty: 10 0RF trazodone 50 mg tablet 25 - 50 mg PO QPM PRN (Reason: insomnia) lamotrigine 25 mg tablet PO pantoprazole 40 mg tablet,delayed release (DR/EC) 40 mg PO DAILY bupropion HCl 100 mg tablet 100 mg PO BID methylphenidate HCl [Concerta] 36 mg tablet extended release 24hr 36 mg PO DAILY spironolactone 50 mg tablet 50 mg PO BID Qty: 60 0RF Follow Up/Referrals: Katherin Carrizales MD [Primary Care Provider] - Stand Alone Forms: [employer] Info Instructions
[2023-06-10 16:24] LABS: Ur HCG Qualitative* Negative (Negative)
[2023-06-10 16:30] LABS: Hemoglobin* 14.5 gm/dL (12.0-16.0)
== END 2023-06-10 16:43 | disposition home or self-care (01) ==
PROVIDERS: Emergency Provider Family Medicine; PCP Family Medicine
DX: N92.6 Irregular menstruation, unspecified (principal)
CPT/HCPCS: 36415; 81025; 85018; 99282; 99283; 99284